=== PATIENT | female | born 1930 | race Caucasian/White ===

== ENCOUNTER 2018-06-11 22:31 | Inpatient (IN) | payer MEDICARE, OTHER ==
[~2018-06-11] VITALS: Ht 157.5 cm; Wt 58.9 kg
[2018-06-11] MEDS ORDERED: normal saline 1000ml 1,000 ML IV ONE (22:50)
[2018-06-11 22:51] LABS: BASOPHILS % (AUTO) 0 % (0-1); EOSINOPHILS % (AUTO) 0 % (0-6); HEMATOCRIT 29.2 % (35.0-45.0); HEMOGLOBIN 9.4 g/dl (12.0-16.0); LYMPHOCYTES % (AUTO) 5.2 % (21-51); MEAN CORPUSCULAR HEMOGLOBIN 25.7 PG (27.0-31.0); MEAN CORPUSCULAR HGB CONC 32.1 % (33.0-36.5); MEAN CORPUSCULAR VOLUME 80.1 FL (78-98); MEAN PLATELET VOLUME 7.4 FL (7.4-10.4); MONOCYTES # (AUTO) 0.7 X10'3 (0-0.9); MONOCYTES % (AUTO) 3.8 % (2-12); NEUTROPHILS # (AUTO) 17.1 X10'3 (1.8-7.7); PLATELET COUNT 228 X10'3 (140-440); RED BLOOD COUNT 3.65 X10'6 (4.20-5.60); RED CELL DISTRIBUTION WIDTH 17.8 % (11.5-14.5); WHITE BLOOD COUNT 18.7 X10'3 (4.5-11.0)
[2018-06-11 23:03] LABS: INR 1.1 INR; PARTIAL THROMBOPLASTIN TIME 30 SECONDS (22-32); PROTHROMBIN TIME 11.7 SECONDS (9.0-12.0)
[2018-06-11 23:07] LABS: ALANINE AMINOTRANSFERASE 15 U/L (12-78); ALBUMIN 2.1 G/DL (3.4-5.0); ALBUMIN/GLOBULIN RATIO 0.5 (1.1-1.5); ALKALINE PHOSPHATASE 66 IU/L (46-116); ANION GAP 7 (8-16); ASPARTATE AMINO TRANSFERASE 16 U/L (10-37); BILIRUBIN,TOTAL 0.6 MG/DL (0.1-1.0); BLOOD UREA NITROGEN 42 MG/DL (7-18); BUN/CREATININE RATIO 25.9 (6.6-38.0); CALCIUM 8.1 MG/DL (8.5-10.1); CHLORIDE 102 MMOL/L (99-107); CREATININE 1.62 MG/DL (0.40-0.90); GLUCOSE 77 MG/DL (70-104); POTASSIUM 4.5 MMOL/L (3.5-5.1); SODIUM 135 MMOL/L (135-145); TOTAL CARBON DIOXIDE 26.2 MMOL/L (24-32); TOTAL PROTEIN 6.6 G/DL (6.4-8.2); eGFR 30 ML/MIN
[2018-06-11 23:25] LABS: CLARITY,URINE CLOUDY (Clear); COLOR,URINE YELLOW (Yellow); GLUCOSE, URINE NEGATIVE (Neg); KETONES,URINE TRACE mg/dl (Neg); LEUKOCYTE ESTERASE ,URINE LARGE (Neg); NITRITES, URINE POSITIVE (Neg); OCCULT BLOOD,URINE TRACE-INTACT (Neg); PROTEIN,URINE TRACE mg/dl (Neg); UROBILINOGEN,URINE 0.2 E.U/dL (0.2-1.0)
[2018-06-11 23:27] LABS: UA COLLECTION TYPE CLN CATCH MIDSTREAM
[2018-06-11 23:44] LABS: BACTERIA,URINE 3+ /HPF (Neg); MUCUS STRANDS NONE SEEN /LPF (Neg); RBC,URINE 0-2 /HPF (0-2); SQUAMOUS EPITHELIAL CELL,UR FEW /LPF (FEW); WBC,URINE TNTC /HPF (0-4)
[2018-06-11] MEDS ORDERED: CefTRIAXone 2gm/D5W 50ml 50 ML IV ONE (23:50)
[2018-06-12 00:05] LABS: TOTAL CELLS COUNTED 100
[2018-06-12 00:05] LABS: ABG BASE EXCESS -1.4 mmol/L (-2.0-3.0); ABG OXYGEN SATURATION 89.4 % (95-98); ABG PCO2 (T) 42.3 mmHg (32.0-45.0); ABG PH (T) 7.369 (7.350-7.450); ABG PO2 (T) 59.5 mmHg (83-108); FLOW 6 L/min; FMetHb 0.3 % (0.3-1.12); FO2Hb 88.2 % (94-100); PATIENT TEMPERATURE 36.7; TOTAL HEMOGLOBIN 9.6 G/dl (12.0-16.0)
[2018-06-12 00:06] LABS: ANISOCYTOSIS 2+; PLATELET ESTIMATE NORMAL
[2018-06-12] MEDS ORDERED: DILT120C51 PO (01:01)
[2018-06-12] MEDS ORDERED: CARSR60C PO (01:01)
[2018-06-12] MEDS ORDERED: GABA-530 PO (01:01)
[2018-06-12] MEDS ORDERED: FLUT1AER (01:01)
[2018-06-12] MEDS ORDERED: ATOR20TA PO (01:01)
[2018-06-12] MEDS ORDERED: ROSU10TA PO (01:01)
[2018-06-12] MEDS ORDERED: MONT10TA24 PO (01:01)
[2018-06-12] MEDS ORDERED: IPRA3AMP IH (01:01)
[2018-06-12] MEDS ORDERED: DIGO125T PO (01:01)
[2018-06-12] MEDS ORDERED: FAMO20TA8 PO (01:01)
[2018-06-12] MEDS ORDERED: OXYB5TAB11 PO (01:01)
[2018-06-12] MEDS ORDERED: ONDA4TAB9 PO (01:01)
[2018-06-12] MEDS ORDERED: UMEC62.5 (01:01)
[2018-06-12] MEDS ORDERED: OMEP40CA37 PO (01:01)
[2018-06-12] MEDS ORDERED: IMIP10TA26 PO (01:01)
[2018-06-12] MEDS ORDERED: ASPI81TA52 PO (01:01)
[2018-06-12] MEDS ORDERED: TRAM50TA2 PO (01:01)
[2018-06-12] MEDS ORDERED: piperacillin/tazo 3.375gm/50ml 50 ML IV STA (02:58)
[2018-06-12] MEDS ORDERED: vancomycin/NS 1 GM ADD-VANTAGE 250 ML IV ONE (03:00)
[2018-06-12] MEDS ORDERED: magnesium hydroxide 30ml (MOM) UD suspension PO PRN (03:05)
[2018-06-12] MEDS ORDERED: acetaminophen 325mg tablet PO PRN (03:05)
[2018-06-12] MEDS ORDERED: morphine 4 MG/ML inj SYRINge IV PRN ×2 (03:05)
[2018-06-12] MEDS ORDERED: mag hydrox/Alum hydrox/simeth 30ml oral suspension PO PRN (03:05)
[2018-06-12] MEDS ORDERED: ondansetron/PF 4mg/2ml inj IV PRN (03:05)
[2018-06-12] MEDS: normal saline 1000ml 1,000 ML IV SCH ×3 (04:11→23:38)
[2018-06-12] MEDS ORDERED: vancomycin/NS 1 GM ADD-VANTAGE 250 ML IV SCH (07:00)
[2018-06-12] MEDS ORDERED: piperacillin/tazo 3.375gm/50ml 50 ML IV SCH (08:00)
[2018-06-12] MEDS ORDERED: non-formulary drug (Rosuvastatin Calcium* (Crestor*) 1 TAB) PO SCH (08:00)
[2018-06-12 08:30] VITALS: BP 103/38
[2018-06-12] MEDS: enoxaparin 30mg/0.3ml syringe SUBCUT SCH (08:55)
[2018-06-12] MEDS: famotidine 20mg tablet PO SCH (08:55)
[2018-06-12] MEDS: oxybutynin 5mg tablet PO SCH (08:56)
[2018-06-12] MEDS: montelukast 10mg tablet PO SCH (08:57)
[2018-06-12] MEDS: aspirin 81mg tablet.DR PO SCH (08:57)
[2018-06-12] MEDS: piperacillin-tazo 2.25gm/50ml 50 ML IV SCH ×3 (10:07→20:26)
[2018-06-12] MEDS: ipratropium/albuterol 3ml nebule NEB PRN ×3 (10:24→23:47)
[2018-06-12 11:00] VITALS: BP 95/50
[2018-06-12] MEDS ORDERED: LACTOSE-FREE FOOD 237ML (BOOST) PO SCH (13:00)
[2018-06-12] MEDS ORDERED: LACTOSE-FREE FOOD (BOOST BREEZE) 237ML PO SCH (13:00)
[2018-06-12 16:05] VITALS: BP 106/42
[2018-06-12] MEDS: Protein Shake (high protein) 240ml (8oz) cup PO SCH (18:40)
[2018-06-12 19:15] VITALS: BP 100/36
[2018-06-12] MEDS: gabapentin 100mg capsule PO SCH (20:26)
[2018-06-12] MEDS: atorvastatin 20mg tablet PO SCH (20:27)
[2018-06-12] MEDS: lactobacillus rhamnosus 10,000 MMU CELLS/CAPSULE PO SCH (20:27)
[2018-06-12] MEDS: imipramine 25mg tablet PO SCH (20:39)
[2018-06-12 22:30] VITALS: BP 121/44
[2018-06-13] MEDS: piperacillin-tazo 2.25gm/50ml 50 ML IV SCH ×4 (01:55→20:02)
[2018-06-13] MEDS: vancomycin/NS 1 GM ADD-VANTAGE 250 ML IV SCH (02:40)
[2018-06-13 03:12] VITALS: BP 120/47
[2018-06-13] MEDS: ipratropium/albuterol 3ml nebule NEB PRN ×4 (03:34→23:39)
[2018-06-13] MEDS: acetaminophen 325mg tablet PO PRN (04:46)
[2018-06-13 05:22] LABS: BASOPHILS % (AUTO) 0.4 % (0-1); EOSINOPHILS % (AUTO) 0.5 % (0-6); HEMATOCRIT 24.8 % (35.0-45.0); LYMPHOCYTES % (AUTO) 10.4 % (21-51); MEAN CORPUSCULAR HEMOGLOBIN 25.9 PG (27.0-31.0); MEAN CORPUSCULAR HGB CONC 32.5 % (33.0-36.5); MEAN CORPUSCULAR VOLUME 79.8 FL (78-98); MEAN PLATELET VOLUME 7.9 FL (7.4-10.4); MONOCYTES # (AUTO) 0.7 X10'3 (0-0.9); MONOCYTES % (AUTO) 6.6 % (2-12); NEUTROPHILS # (AUTO) 8.1 X10'3 (1.8-7.7); NEUTROPHILS % (AUTO) 82.1 % (42-75); PLATELET COUNT 177 X10'3 (140-440); RED CELL DISTRIBUTION WIDTH 18.4 % (11.5-14.5); WHITE BLOOD COUNT 9.9 X10'3 (4.5-11.0)
[2018-06-13 05:30] VITALS: BP 108/37
[2018-06-13 05:30] LABS: ALBUMIN 1.8 G/DL (3.4-5.0); ANION GAP 6 (8-16); BLOOD UREA NITROGEN 25 MG/DL (7-18); BUN/CREATININE RATIO 24.8 (6.6-38.0); CHLORIDE 107 MMOL/L (99-107); CREATININE 1.01 MG/DL (0.40-0.90); GLUCOSE 111 MG/DL (70-104); POTASSIUM 3.8 MMOL/L (3.5-5.1); SODIUM 140 MMOL/L (135-145); TOTAL CARBON DIOXIDE 26.7 MMOL/L (24-32); eGFR 52 ML/MIN
[2018-06-13] MEDS: montelukast 10mg tablet PO SCH (08:53)
[2018-06-13] MEDS: lactobacillus rhamnosus 10,000 MMU CELLS/CAPSULE PO SCH ×2 (08:53→20:02)
[2018-06-13] MEDS: oxybutynin 5mg tablet PO SCH (08:53)
[2018-06-13] MEDS: aspirin 81mg tablet.DR PO SCH (08:53)
[2018-06-13] MEDS: famotidine 20mg tablet PO SCH (08:53)
[2018-06-13] MEDS: enoxaparin 30mg/0.3ml syringe SUBCUT SCH (08:54)
[2018-06-13] MEDS: Protein Shake (high protein) 240ml (8oz) cup PO SCH ×3 (08:54→18:02)
[2018-06-13 12:17] VITALS: BP 103/45
[2018-06-13] MEDS: normal saline 1000ml 1,000 ML IV SCH ×2 (12:40→19:02)
[2018-06-13] MEDS: LACTOSE-FREE FOOD 237ML (BOOST) PO SCH ×2 (13:00→18:00)
[2018-06-13] MEDS: HYDROcodone/acetaminophen 5mg/325mg tablet PO PRN (13:26)
[2018-06-13 14:39] LABS: % IRON SATURATION 6 % (11-46); IRON 9 UG/DL (49-151); TOTAL IRON BINDING CAPACITY 162 UG/DL (259-388)
[2018-06-13 15:00] VITALS: BP 103/40
[2018-06-13 20:00] VITALS: BP 118/68
[2018-06-13] MEDS: gabapentin 100mg capsule PO SCH (20:02)
[2018-06-13] MEDS: imipramine 25mg tablet PO SCH (20:02)
[2018-06-13] MEDS: guaiFENesin ER 600mg tablet PO SCH (20:02)
[2018-06-13] MEDS: atorvastatin 20mg tablet PO SCH (20:02)
[2018-06-14] VITALS: BP 115/53
[2018-06-14] MEDS: piperacillin-tazo 2.25gm/50ml 50 ML IV SCH ×4 (02:20→20:27)
[2018-06-14] MEDS: vancomycin/NS 1 GM ADD-VANTAGE 250 ML IV SCH (03:25)
[2018-06-14] MEDS: normal saline 1000ml 1,000 ML IV SCH ×2 (04:10→16:14)
[2018-06-14 05:36] LABS: BASOPHILS % (AUTO) 0.1 % (0-1); EOSINOPHILS # (AUTO) 0.1 X10'3 (0-0.9); EOSINOPHILS % (AUTO) 0.7 % (0-6); HEMATOCRIT 27.1 % (35.0-45.0); HEMOGLOBIN 8.7 g/dl (12.0-16.0); LYMPHOCYTES # (AUTO) 0.5 X10'3 (1.1-4.8); LYMPHOCYTES % (AUTO) 5.1 % (21-51); MEAN CORPUSCULAR HEMOGLOBIN 25.7 PG (27.0-31.0); MEAN CORPUSCULAR HGB CONC 32.3 % (33.0-36.5); MEAN CORPUSCULAR VOLUME 79.6 FL (78-98); MEAN PLATELET VOLUME 7.7 FL (7.4-10.4); MONOCYTES # (AUTO) 0.6 X10'3 (0-0.9); MONOCYTES % (AUTO) 6.2 % (2-12); NEUTROPHILS # (AUTO) 8.6 X10'3 (1.8-7.7); NEUTROPHILS % (AUTO) 87.9 % (42-75); PLATELET COUNT 194 X10'3 (140-440); RED BLOOD COUNT 3.41 X10'6 (4.20-5.60); RED CELL DISTRIBUTION WIDTH 18.3 % (11.5-14.5); WHITE BLOOD COUNT 9.8 X10'3 (4.5-11.0)
[2018-06-14 05:59] LABS: ALBUMIN 1.8 G/DL (3.4-5.0); ANION GAP 8 (8-16); BLOOD UREA NITROGEN 16 MG/DL (7-18); BUN/CREATININE RATIO 18.6 (6.6-38.0); CALCIUM 8.5 MG/DL (8.5-10.1); CHLORIDE 107 MMOL/L (99-107); CREATININE 0.86 MG/DL (0.40-0.90); GLUCOSE 117 MG/DL (70-104); POTASSIUM 3.9 MMOL/L (3.5-5.1); SODIUM 141 MMOL/L (135-145); eGFR 62 ML/MIN
[2018-06-14 08:00] VITALS: BP 129/62
[2018-06-14] MEDS: LACTOSE-FREE FOOD 237ML (BOOST) PO SCH ×3 (08:00→20:26)
[2018-06-14] MEDS: Protein Shake (high protein) 240ml (8oz) cup PO SCH ×3 (08:00→20:26)
[2018-06-14] MEDS: guaiFENesin ER 600mg tablet PO SCH ×2 (08:09→20:27)
[2018-06-14] MEDS: oxybutynin 5mg tablet PO SCH (08:09)
[2018-06-14] MEDS: lactobacillus rhamnosus 10,000 MMU CELLS/CAPSULE PO SCH ×2 (08:09→20:27)
[2018-06-14] MEDS: aspirin 81mg tablet.DR PO SCH (08:09)
[2018-06-14] MEDS: montelukast 10mg tablet PO SCH (08:09)
[2018-06-14] MEDS: famotidine 20mg tablet PO SCH (08:09)
[2018-06-14] MEDS: enoxaparin 30mg/0.3ml syringe SUBCUT SCH (08:10)
[2018-06-14] MEDS: ipratropium/albuterol 3ml nebule NEB PRN (10:20)
[2018-06-14 11:57] VITALS: BP 140/59
[2018-06-14] MEDS: HYDROcodone/acetaminophen 5mg/325mg tablet PO PRN (16:16)
[2018-06-14 19:30] VITALS: BP 141/65
[2018-06-14] MEDS: gabapentin 100mg capsule PO SCH (20:27)
[2018-06-14] MEDS: imipramine 25mg tablet PO SCH (20:27)
[2018-06-14] MEDS: atorvastatin 20mg tablet PO SCH (20:27)
[2018-06-15] VITALS: BP 129/58
[2018-06-15] MEDS: normal saline 1000ml 1,000 ML IV SCH ×3 (01:02→21:02)
[2018-06-15] MEDS: piperacillin-tazo 2.25gm/50ml 50 ML IV SCH ×4 (01:40→20:12)
[2018-06-15] MEDS: acetaminophen 325mg tablet PO PRN (01:51)
[2018-06-15] MEDS ORDERED: VANCOMYCIN LEVEL IV ONE (02:30)
[2018-06-15 03:21] LABS: BASOPHILS # (AUTO) 0.1 X10'3 (0-0.2); BASOPHILS % (AUTO) 0.5 % (0-1); EOSINOPHILS # (AUTO) 0.2 X10'3 (0-0.9); EOSINOPHILS % (AUTO) 2.1 % (0-6); HEMATOCRIT 27.1 % (35.0-45.0); HEMOGLOBIN 8.7 g/dl (12.0-16.0); LYMPHOCYTES # (AUTO) 0.6 X10'3 (1.1-4.8); LYMPHOCYTES % (AUTO) 5.4 % (21-51); MEAN CORPUSCULAR HGB CONC 32.2 % (33.0-36.5); MEAN CORPUSCULAR VOLUME 80.6 FL (78-98); MEAN PLATELET VOLUME 7.2 FL (7.4-10.4); MONOCYTES % (AUTO) 9.1 % (2-12); NEUTROPHILS # (AUTO) 8.7 X10'3 (1.8-7.7); NEUTROPHILS % (AUTO) 82.9 % (42-75); PLATELET COUNT 222 X10'3 (140-440); RED BLOOD COUNT 3.36 X10'6 (4.20-5.60); RED CELL DISTRIBUTION WIDTH 18.8 % (11.5-14.5); WHITE BLOOD COUNT 10.5 X10'3 (4.5-11.0)
[2018-06-15] MEDS: vancomycin/NS 1 GM ADD-VANTAGE 250 ML IV SCH (03:21)
[2018-06-15 03:36] LABS: ALANINE AMINOTRANSFERASE 13 U/L (12-78); ALBUMIN 1.8 G/DL (3.4-5.0); ALBUMIN/GLOBULIN RATIO 0.4 (1.1-1.5); ALKALINE PHOSPHATASE 93 IU/L (46-116); ANION GAP 5 (8-16); ASPARTATE AMINO TRANSFERASE 15 U/L (10-37); BILIRUBIN,TOTAL 0.4 MG/DL (0.1-1.0); BLOOD UREA NITROGEN 12 MG/DL (7-18); BUN/CREATININE RATIO 16.2 (6.6-38.0); CALCIUM 8.6 MG/DL (8.5-10.1); CHLORIDE 107 MMOL/L (99-107); CREATININE 0.74 MG/DL (0.40-0.90); GLUCOSE 107 MG/DL (70-104); POTASSIUM 3.6 MMOL/L (3.5-5.1); SODIUM 141 MMOL/L (135-145); TOTAL CARBON DIOXIDE 29.4 MMOL/L (24-32); TOTAL PROTEIN 6.4 G/DL (6.4-8.2); VANCOMYCIN,TROUGH 7.5 UG/ML (6.0-14.0); eGFR 74 ML/MIN
[2018-06-15] MEDS: lactobacillus rhamnosus 10,000 MMU CELLS/CAPSULE PO SCH ×2 (07:29→20:12)
[2018-06-15] MEDS: enoxaparin 30mg/0.3ml syringe SUBCUT SCH (07:29)
[2018-06-15] MEDS: montelukast 10mg tablet PO SCH (07:29)
[2018-06-15] MEDS: guaiFENesin ER 600mg tablet PO SCH ×2 (07:29→20:12)
[2018-06-15] MEDS: oxybutynin 5mg tablet PO SCH (07:29)
[2018-06-15] MEDS: pantoprazole 40mg Tablet.DR PO SCH (07:30)
[2018-06-15] MEDS: aspirin 81mg tablet.DR PO SCH (07:30)
[2018-06-15 07:37] VITALS: BP 136/53
[2018-06-15] MEDS: Protein Shake (high protein) 240ml (8oz) cup PO SCH ×3 (08:00→18:00)
[2018-06-15] MEDS: ipratropium/albuterol 3ml nebule NEB PRN ×2 (08:02→11:57)
[2018-06-15 12:00] VITALS: BP 148/64
[2018-06-15] MEDS: LACTOSE-FREE FOOD 237ML (BOOST) PO SCH ×3 (12:23→18:00)
[2018-06-15] MEDS: fluconazole 100mg tablet PO SCH (12:23)
[2018-06-15] MEDS ORDERED: metoprolol tartrate 1mg/ml inj IV ONE ×2 (12:55→13:05)
[2018-06-15] MEDS ORDERED: ipratropium 0.5 MG/2.5ML nebule IH PRN (12:55)
[2018-06-15] MEDS: levalbuterol 0.63mg/3ml nebule IH SCH ×2 (15:53→21:22)
[2018-06-15 20:00] VITALS: BP 148/86
[2018-06-15] MEDS: gabapentin 100mg capsule PO SCH (20:12)
[2018-06-15] MEDS: imipramine 25mg tablet PO SCH (20:12)
[2018-06-15] MEDS: atorvastatin 20mg tablet PO SCH (20:12)
[2018-06-15] MEDS: HYDROcodone/acetaminophen 5mg/325mg tablet PO PRN (20:13)
[2018-06-16] VITALS: BP 114/81
[2018-06-16] MEDS: normal saline 1000ml 1,000 ML IV SCH ×2 (00:04→14:42)
[2018-06-16] MEDS: piperacillin-tazo 2.25gm/50ml 50 ML IV SCH ×4 (02:19→20:34)
[2018-06-16] MEDS: levalbuterol 0.63mg/3ml nebule IH SCH ×4 (02:42→20:34)
[2018-06-16 06:34] LABS: BASOPHILS % (AUTO) 0.1 % (0-1); EOSINOPHILS # (AUTO) 0.2 X10'3 (0-0.9); EOSINOPHILS % (AUTO) 1.4 % (0-6); HEMATOCRIT 27.8 % (35.0-45.0); LYMPHOCYTES # (AUTO) 0.9 X10'3 (1.1-4.8); LYMPHOCYTES % (AUTO) 7.9 % (21-51); MEAN CORPUSCULAR HEMOGLOBIN 25.8 PG (27.0-31.0); MEAN CORPUSCULAR HGB CONC 32.3 % (33.0-36.5); MEAN CORPUSCULAR VOLUME 79.9 FL (78-98); MEAN PLATELET VOLUME 7.3 FL (7.4-10.4); MONOCYTES % (AUTO) 8.7 % (2-12); NEUTROPHILS # (AUTO) 9.3 X10'3 (1.8-7.7); NEUTROPHILS % (AUTO) 81.9 % (42-75); PLATELET COUNT 233 X10'3 (140-440); RED BLOOD COUNT 3.48 X10'6 (4.20-5.60); RED CELL DISTRIBUTION WIDTH 18.8 % (11.5-14.5); WHITE BLOOD COUNT 11.4 X10'3 (4.5-11.0)
[2018-06-16 06:44] LABS: ALBUMIN 1.6 G/DL (3.4-5.0); ANION GAP 4 (8-16); BLOOD UREA NITROGEN 10 MG/DL (7-18); BUN/CREATININE RATIO 12.3 (6.6-38.0); CALCIUM 8.3 MG/DL (8.5-10.1); CHLORIDE 106 MMOL/L (99-107); CREATININE 0.81 MG/DL (0.40-0.90); GLUCOSE 78 MG/DL (70-104); POTASSIUM 3.4 MMOL/L (3.5-5.1); SODIUM 139 MMOL/L (135-145); TOTAL CARBON DIOXIDE 28.6 MMOL/L (24-32); eGFR 67 ML/MIN
[2018-06-16] MEDS: Protein Shake (high protein) 240ml (8oz) cup PO SCH ×3 (08:00→18:26)
[2018-06-16] MEDS: LACTOSE-FREE FOOD 237ML (BOOST) PO SCH ×3 (08:00→18:25)
[2018-06-16 08:17] VITALS: BP 165/85
[2018-06-16] MEDS: guaiFENesin ER 600mg tablet PO SCH ×2 (09:25→20:34)
[2018-06-16] MEDS: HYDROcodone/acetaminophen 5mg/325mg tablet PO PRN ×2 (09:25→20:35)
[2018-06-16] MEDS: fluconazole 100mg tablet PO SCH (09:25)
[2018-06-16] MEDS: aspirin 81mg tablet.DR PO SCH (09:25)
[2018-06-16] MEDS: pantoprazole 40mg Tablet.DR PO SCH (09:26)
[2018-06-16] MEDS: oxybutynin 5mg tablet PO SCH (09:26)
[2018-06-16] MEDS: montelukast 10mg tablet PO SCH (09:26)
[2018-06-16] MEDS: lactobacillus rhamnosus 10,000 MMU CELLS/CAPSULE PO SCH ×2 (09:26→20:35)
[2018-06-16] MEDS: enoxaparin 30mg/0.3ml syringe SUBCUT SCH (09:27)
[2018-06-16 12:18] VITALS: BP 130/53
[2018-06-16] MEDS: atorvastatin 20mg tablet PO SCH (20:34)
[2018-06-16] MEDS: imipramine 25mg tablet PO SCH (20:34)
[2018-06-16] MEDS: gabapentin 100mg capsule PO SCH (20:34)
[2018-06-17] VITALS: BP 126/58
[2018-06-17] MEDS: piperacillin-tazo 2.25gm/50ml 50 ML IV SCH ×4 (01:42→20:33)
[2018-06-17] MEDS: levalbuterol 0.63mg/3ml nebule IH SCH (02:34)
[2018-06-17 07:00] VITALS: BP 146/76
[2018-06-17] MEDS: Protein Shake (high protein) 240ml (8oz) cup PO SCH ×3 (08:00→18:08)
[2018-06-17] MEDS: LACTOSE-FREE FOOD 237ML (BOOST) PO SCH ×3 (08:00→18:08)
[2018-06-17 08:04] LABS: ALBUMIN 1.7 G/DL (3.4-5.0); ANION GAP 5 (8-16); BLOOD UREA NITROGEN 7 MG/DL (7-18); BUN/CREATININE RATIO 8.5 (6.6-38.0); CALCIUM 8.6 MG/DL (8.5-10.1); CHLORIDE 104 MMOL/L (99-107); CREATININE 0.82 MG/DL (0.40-0.90); GLUCOSE 98 MG/DL (70-104); POTASSIUM 3.1 MMOL/L (3.5-5.1); SODIUM 140 MMOL/L (135-145); eGFR 66 ML/MIN
[2018-06-17 08:10] LABS: BASOPHILS % (AUTO) 0.1 % (0-1); EOSINOPHILS # (AUTO) 0.2 X10'3 (0-0.9); EOSINOPHILS % (AUTO) 1.6 % (0-6); HEMATOCRIT 30.9 % (35.0-45.0); LYMPHOCYTES % (AUTO) 6.8 % (21-51); MEAN CORPUSCULAR HEMOGLOBIN 25.9 PG (27.0-31.0); MEAN CORPUSCULAR HGB CONC 32.3 % (33.0-36.5); MEAN CORPUSCULAR VOLUME 80.1 FL (78-98); MEAN PLATELET VOLUME 7.3 FL (7.4-10.4); MONOCYTES # (AUTO) 0.9 X10'3 (0-0.9); MONOCYTES % (AUTO) 6.4 % (2-12); NEUTROPHILS # (AUTO) 12.2 X10'3 (1.8-7.7); NEUTROPHILS % (AUTO) 85.1 % (42-75); PLATELET COUNT 283 X10'3 (140-440); RED BLOOD COUNT 3.85 X10'6 (4.20-5.60); RED CELL DISTRIBUTION WIDTH 18.5 % (11.5-14.5); WHITE BLOOD COUNT 14.3 X10'3 (4.5-11.0)
[2018-06-17] MEDS: fluconazole 100mg tablet PO SCH (09:31)
[2018-06-17] MEDS: montelukast 10mg tablet PO SCH (09:31)
[2018-06-17] MEDS: HYDROcodone/acetaminophen 5mg/325mg tablet PO PRN (09:31)
[2018-06-17] MEDS: lactobacillus rhamnosus 10,000 MMU CELLS/CAPSULE PO SCH ×2 (09:31→20:32)
[2018-06-17] MEDS: oxybutynin 5mg tablet PO SCH (09:31)
[2018-06-17] MEDS: pantoprazole 40mg Tablet.DR PO SCH (09:32)
[2018-06-17] MEDS: guaiFENesin ER 600mg tablet PO SCH ×2 (09:32→20:32)
[2018-06-17] MEDS: aspirin 81mg tablet.DR PO SCH (09:32)
[2018-06-17] MEDS: enoxaparin 30mg/0.3ml syringe SUBCUT SCH (09:33)
[2018-06-17 11:53] VITALS: BP 114/69
[2018-06-17] MEDS: albuterol 2.5 MG/3 ML nebule NEB SCH ×2 (16:20→21:19)
[2018-06-17] MEDS ORDERED: potassium Cl 20 mEq SR tablet PO PRN (17:55)
[2018-06-17] MEDS ORDERED: potassium Cl 40MEQ/NS 500ml 500 ML IV PRN ×2 (17:55)
[2018-06-17 20:00] VITALS: BP 125/60
[2018-06-17] MEDS: imipramine 25mg tablet PO SCH (20:32)
[2018-06-17] MEDS: gabapentin 100mg capsule PO SCH (20:32)
[2018-06-17] MEDS: atorvastatin 20mg tablet PO SCH (20:32)
[2018-06-18] VITALS: BP 129/63
[2018-06-18] MEDS: piperacillin-tazo 2.25gm/50ml 50 ML IV SCH ×3 (01:30→11:43)
[2018-06-18] MEDS: albuterol 2.5 MG/3 ML nebule NEB SCH ×2 (02:51→10:01)
[2018-06-18 03:34] LABS: MAGNESIUM 1.1 MG/DL (1.5-2.4)
[2018-06-18 03:41] LABS: POTASSIUM 2.8 MMOL/L (3.5-5.1)
[2018-06-18] MEDS: potassium Cl 20 mEq SR tablet PO PRN ×2 (04:10→11:43)
[2018-06-18] MEDS: pantoprazole 40mg Tablet.DR PO SCH (07:46)
[2018-06-18] MEDS: montelukast 10mg tablet PO SCH (07:46)
[2018-06-18] MEDS: aspirin 81mg tablet.DR PO SCH (07:46)
[2018-06-18] MEDS: lactobacillus rhamnosus 10,000 MMU CELLS/CAPSULE PO SCH (07:46)
[2018-06-18] MEDS: oxybutynin 5mg tablet PO SCH (07:46)
[2018-06-18] MEDS: guaiFENesin ER 600mg tablet PO SCH (07:47)
[2018-06-18] MEDS: enoxaparin 30mg/0.3ml syringe SUBCUT SCH (07:48)
[2018-06-18] MEDS: fluconazole 100mg tablet PO SCH (07:54)
[2018-06-18] MEDS: Protein Shake (high protein) 240ml (8oz) cup PO SCH (08:00)
[2018-06-18] MEDS: LACTOSE-FREE FOOD 237ML (BOOST) PO SCH (08:14)
[2018-06-18 09:34] VITALS: BP 152/73
[2018-06-18] MEDS: HYDROcodone/acetaminophen 5mg/325mg tablet PO PRN (10:02)
[2018-06-18 11:37] VITALS: BP 97/45
[2018-06-18] MEDS ORDERED: magnesium oxide 400mg tablet PO ONE (11:40)
[2018-06-18 11:53] VITALS: BP 149/52
[2018-06-19] MEDS ORDERED: VANCOMYCIN LEVEL IV NR (02:30)
== END 2018-06-18 14:30 | DRG 871 ==
LOC: ER 22:32 → ED HOLD 06-12 03:02 → PCU 3S 06-12 08:10 → CMPBEDREQ 06-12 19:52 → SUR 3N 06-13 18:53
PROVIDERS: ADMIT Internal Medicine; ATTEND Internal Medicine
DX: A41.9 Sepsis, unspecified organism (principal); J18.9 Pneumonia, unspecified organism; N39.0 Urinary tract infection, site not specified; J44.0 Chronic obstructive pulmonary disease with (acute) lower respiratory infection; K50.90 Crohn's disease, unspecified, without complications; I47.2 Ventricular tachycardia; J96.11 Chronic respiratory failure with hypoxia; N17.9 Acute kidney failure, unspecified; R07.89 Other chest pain; I73.9 Peripheral vascular disease, unspecified; E78.5 Hyperlipidemia, unspecified; W10.8XXA Fall (on) (from) other stairs and steps, initial encounter; R63.0 Anorexia; K81.9 Cholecystitis, unspecified; T48.6X5A Adverse effect of antiasthmatics, initial encounter; Z66 Do not resuscitate; Z99.81 Dependence on supplemental oxygen; Z79.899 Other long term (current) drug therapy; Z79.82 Long term (current) use of aspirin; Z87.891 Personal history of nicotine dependence; Z68.23 Body mass index [BMI] 23.0-23.9, adult; Y93.89 Activity, other specified; Y92.89 Other specified places as the place of occurrence of the external cause; Y99.8 Other external cause status
CPT/HCPCS: 36415; 36600; 71045; 71100; 76700; 80048; 80053; 80162; 80202; 81001; 82607; 82746; 82803; 83540; 83550; 83605; 83735; 84132; 84145; 84484; 85018; 85025; 85610; 85730; 87040; 87070; 87088; 93005; 94640; 94667; 94668; 94760; 96365; 97116; 97161; 97530; 99285; A6212; A6213; A6250; J0696; J1650; J2270; J2405; J2543; J3370; J3490; J7030; J7614